=== PATIENT | male | born 1970 | race Caucasian/White ===

== ENCOUNTER 2016-12-22 16:55 | Emergency (ER) | payer OTHER ==
[~2016-12-22] VITALS: Ht 177.8 cm; Wt 104.3 kg
[~2016-12-22 16:55] MED LIST: ERYTHROMYCIN
[2016-12-22] MEDS ORDERED: ANUSOL HC,ANUCO25 MG PR (17:39)
[2016-12-22] MEDS ORDERED: MIRALAX255 GM PO (17:39)
[2016-12-22 18:32] VITALS: BP 139/108
== END 2016-12-22 18:33 | disposition home or self-care (01) ==
LOC: EME 16:55
DX: K64.5 Perianal venous thrombosis (principal)
CPT/HCPCS: 99281; 99284